=== PATIENT | male | born 1940 | race Caucasian/White ===

== ENCOUNTER 2017-07-26 14:57 | Emergency (ER) | payer OTHER ==
[~2017-07-26] VITALS: Ht 170.2 cm; Wt 83.5 kg
[~2017-07-26 14:57] MED LIST: ASPI-1093 PO; LISI5TAB18 PO; METF850T PO; OMEP40EC1 PO; SIMV20TA1 PO; TAMS0.4C97 PO; [UNRECOGNIZED DRUG - CODE] PO
[2017-07-26 16:08] VITALS: BP 133/75
--- NOTE | 2017-07-26 16:26 | NUR ---
PT PRESENTS TO ER W/C/O LEFT FOOT PAIN S/P MECHANICAL FALL LAST NOC.LT FOOT IS SWOLLEN; PT DENIES ANY HX. DENIES N/V/D; SKIN IS PINK/WARM/DRY; AAOX4 WITH EVEN AND STEADY GAIT; LUNGS CLEAR BL; HR EVEN AND REGULAR; PT DENIES ANY FEVER, CP, SOB, OR COUGH AT THIS TIME; PATIENT STATES PAIN OF 9/10 AT THIS TIME;PATIENT POSITIONED FOR COMFORT; HOB ELEVATED; BEDRAILS UP X2; BED DOWN. ER MD MADE AWARE OF PT STATUS.
--- NOTE | 2017-07-26 16:48 | NUR ---
ER EVALUATING PT;
[2017-07-26] MEDS ORDERED: IBUPROFEN 800 MG TAB PO ONE (16:50)
[2017-07-26 17:18] VITALS: BP 128/78
--- NOTE | 2017-07-26 17:18 | NUR ---
Patient discharged with v/s stable. Written and verbal after care instructions given and explained. Patient alert, oriented and verbalized understanding of instructions. Wheel Chair Assisted with to car. All questions addressed prior to discharge. ID band removed. Patient advised to follow up with PMD. Rx of MOTRIN given. Patient educated on indication of medication including possible reaction and side effects. Opportunity to ask questions provided and answered.
== END 2017-07-26 17:18 | disposition home or self-care (01) ==
LOC: MED 14:57
DX: S92.345A Nondisplaced fracture of fourth metatarsal bone, left foot, initial encounter for closed fracture (principal); S92.352A Displaced fracture of fifth metatarsal bone, left foot, initial encounter for closed fracture; X58.XXXA Exposure to other specified factors, initial encounter; Y93.89 Activity, other specified; Y92.89 Other specified places as the place of occurrence of the external cause; Y99.8 Other external cause status
CPT/HCPCS: 29515; 73610; 73630; 99284

== ENCOUNTER 2017-08-26 14:46 | Emergency (ER) | payer OTHER ==
[~2017-08-26] VITALS: Ht 170.2 cm; Wt 84.4 kg
[~2017-08-26 14:46] MED LIST changes: -ASPI-1093 PO; +ECOTRIN81 MG PO; +GLUCOPHAGE850 MG PO; -LISI5TAB18 PO; -METF850T PO; -OMEP40EC1 PO; +PRILOSEC40 MG PO; -SIMV20TA1 PO; +SUPER B COMPLEX PO; -TAMS0.4C97 PO; +TAMSULOSIN HCL0.4 MG PO; +VITAMIN D2000 I1 PO; +ZESTRIL5 MG PO; +ZOCOR20 MG PO; -[UNRECOGNIZED DRUG - CODE] PO
[2017-08-26 15:14] VITALS: BP 132/85
[2017-08-26] MEDS ORDERED: CARDURA2 MG PO (15:22)
[2017-08-26] MEDS ORDERED: CLARITIN10 MG PO (15:22)
--- NOTE | 2017-08-26 18:52 | NUR ---
PATIENT TO BED 5 AT THIS TIME
--- NOTE | 2017-08-26 18:54 | NUR ---
PATIENT PRESENTS TO ED WITH C/O LOWER BACK PAIN X 3 DAYS---WORSE YESTERDAY DIZZINESS, DIAPHORETIC, NAUSEA DURING SHOWER TODAY HX---DM, BPH, HYPERLIPIDEMIA, METATARSAL FX LEFT FOOT, HTN RX---ASA, DOXAZOSIN, FLUTICASONE 50MCG SPRAY, LISINOPRIL 5MG, LORATADINE 10MG, MELOXICAM 15MG, METFORMIN 850MG, OMEPRAZOLE 20MG; DENIES V/D; SKIN IS PINK/WARM/DRY; AAOX4 WITH EVEN AND STEADY GAIT; LUNGS CLEAR BL; HR EVEN AND REGULAR; PT DENIES ANY FEVER, CP, SOB, OR COUGH AT THIS TIME; PATIENT STATES PAIN OF 10/10 AT THIS TIME; VSS; PATIENT POSITIONED FOR COMFORT; HOB ELEVATED; BEDRAILS UP X2; BED DOWN. ER MD MADE AWARE OF PT STATUS.
--- NOTE | 2017-08-26 19:19 | NUR ---
REPORT GIVEN KIERAN HERRING
--- NOTE | 2017-08-26 19:36 | NUR ---
Patient being evaluated by Dr. Ojeda at bedside.
--- NOTE | 2017-08-26 20:09 | NUR ---
Pt taken to CT via w/c.
--- NOTE | 2017-08-26 20:22 | NUR ---
Pt back from CT and placed in bed 5.
[2017-08-26] MEDS ORDERED: MORPHINE SULFATE 2 MG/ML SYR IVP ONE (20:35)
--- NOTE | 2017-08-26 21:34 | NUR ---
Patient resting comfortably in bed. VSS. 0/10 pain. Son at bedside. Pt smiling, no distress noted.
[2017-08-26 22:00] VITALS: BP 117/78
--- NOTE | 2017-08-26 22:00 | NUR ---
Patient discharged with v/s stable. Written and verbal after care instructions given and explained. Patient alert, oriented and verbalized understanding of instructions. Ambulatory with steady gait. All questions addressed prior to discharge. ID band removed. Patient advised to follow up with PMD. Rx of Tramadol 50mg and Senokot 8.6mg given. Patient educated on indication of medication including possible reaction and side effects. Opportunity to ask questions provided and answered.
--- NOTE | 2017-08-26 22:00 | NUR ---
IV removed, catheter intact and site benign. Applied folded 4x4 gauze and tape to stop bleeding.
== END 2017-08-26 22:00 | disposition home or self-care (01) ==
LOC: MED 14:46
DX: K59.00 Constipation, unspecified (principal); M54.5 Low back pain; I10 Essential (primary) hypertension
CPT/HCPCS: 36415; 71010; 74176; 80053; 81001; 82948; 84484; 85025; 85610; 93005; 96374; 99285; J2270

== ENCOUNTER 2019-06-23 18:30 | Emergency (ER) | payer OTHER ==
[~2019-06-23] VITALS: Ht 170.2 cm; Wt 84.4 kg
[~2019-06-23 18:30] MED LIST changes: +ASPI-1093 PO; +DOXA2TAB1 PO; -ECOTRIN81 MG PO; -GLUCOPHAGE850 MG PO; +LISI5TAB18 PO; +LORA10TA19 PO; +METF850T PO; +OMEP40EC1 PO; -PRILOSEC40 MG PO; +SIMV20TA1 PO; -SUPER B COMPLEX PO; +TAMS0.4C97 PO; -TAMSULOSIN HCL0.4 MG PO; -VITAMIN D2000 I1 PO; -ZESTRIL5 MG PO; -ZOCOR20 MG PO; +[UNRECOGNIZED DRUG - CODE] PO
[2019-06-23 18:34] VITALS: BP 128/69
[2019-06-23] MEDS ORDERED: KETOROLAC 60 MG/2 ML VIAL IM ONE (19:20)
[2019-06-23 19:45] VITALS: BP 120/72
== END 2019-06-23 19:45 | disposition home or self-care (01) ==
LOC: MED 18:30
DX: S13.9XXA Sprain of joints and ligaments of unspecified parts of neck, initial encounter (principal); E11.9 Type 2 diabetes mellitus without complications; Z79.84 Long term (current) use of oral hypoglycemic drugs; Z79.899 Other long term (current) drug therapy; Z90.89 Acquired absence of other organs; X58.XXXA Exposure to other specified factors, initial encounter; Y93.89 Activity, other specified; Y92.89 Other specified places as the place of occurrence of the external cause; Y99.8 Other external cause status
CPT/HCPCS: 96372; 99283; J1885

== ENCOUNTER 2019-07-02 19:38 | Emergency (ER) | payer MEDICARE, OTHER ==
[~2019-07-02] VITALS: Ht 170.2 cm; Wt 82.6 kg
[2019-07-02 19:42] VITALS: BP 120/69
--- NOTE | 2019-07-02 19:42 | NUR ---
TO BED # 08 AMBULATORY
--- NOTE | 2019-07-02 20:00 | NUR ---
PT C/O LEFT NECK, SHOULDER AND HEAD PAIN. PAIN LEVEL 8/10 CONSISTENT ACHING PAIN. PT CAME TO [facility] ON 06/23/19 AND WAS GIVEN RX NAPROXEN FOR PAIN. PER PT THE PAIN IS STILL THERE. PT DENIES ANY TRAUMA OR INJURY TO AREA. MED HX: DM, HIGH CHOLESTEROL, GERD, ENLARGED PROSTATE. SAFETY MEASURES IN PLACE. WAITING FOR ERMD TO EVALUATE PT.
[2019-07-02] MEDS ORDERED: HYDROcodone/APAP 5/325 MG 1 TAB TAB PO ONE (21:15)
[2019-07-02 21:39] VITALS: BP 120/69
== END 2019-07-02 21:39 | disposition home or self-care (01) ==
LOC: MED 19:38
DX: M54.2 Cervicalgia (principal); I10 Essential (primary) hypertension; E11.9 Type 2 diabetes mellitus without complications; E78.5 Hyperlipidemia, unspecified; N40.0 Benign prostatic hyperplasia without lower urinary tract symptoms; Z79.84 Long term (current) use of oral hypoglycemic drugs; Z79.899 Other long term (current) drug therapy; Z79.82 Long term (current) use of aspirin
CPT/HCPCS: 99283